=== PATIENT | female | born 1995 | race Caucasian/White ===

== ENCOUNTER 2019-11-27 15:31 | Emergency (ER) | payer BC, OTHER, SELFPAY ==
[2019-11-27 15:52] VITALS: BP 126/82; PULSE 108; RESP 16; TEMP 36.8; O2SAT 97
--- NOTE | 2019-11-27 16:26 | ED.GENADULT ---
HPI - General Adult General Chief complaint: Skin/Abscess/Foreign Body Stated complaint: oral thrush Time Seen by Provider: 11/27/19 16:27 Source: patient and RN notes reviewed Mode of arrival: ambulatory Limitations: no limitations History of Present Illness HPI narrative: 24-year-old female presents with concern for thrush and also flu symptoms. Reports her boyfriend uses an inhaler and often gets thrush and she thinks she got thrush from him. Reports a white coating on her tongue with a burning-like feeling. She has been treating it with salt water. Reports some improvement with salt water but not resolution. She also reports since Friday she has had fever, body aches, chills, sweats, coughing. MD complaint: Thrush, flulike symptoms Related Data Home Medications Medication Instructions Recorded Confirmed Bcp 11/27/19 Allergies Allergy/AdvReac Type Severity Reaction Status Date / Time No Known Allergies Allergy Verified 11/27/19 16:19 Review of Systems Review of Systems: Narrative: CONSTITUTIONAL: Reports malaise, chills, sweats, fever. EYES: Denies visual changes, redness, or discharge. ENT: Reports rhinorrhea, white coating on her tongue. Denies congestion, sinus pain, otalgia and sore throat. CARDIOVASCULAR: Denies chest pain, palpitations, or edema. RESPIRATORY: Reports cough. Denies dyspnea. GASTROINTESTINAL: Denies abdominal pain, nausea, vomiting, diarrhea SKIN: Denies rash or itching. MUSCULOSKELETAL: Reports myalgia. NEUROLOGIC: Reports headache. All systems reviewed & are unremarkable except as noted in HPI and below PMFSH Comments At time of signature, agree with nursing past medical, surgical, social and family history. There is no relevant family history pertinent to the presenting complaint Exam Narrative: Exam Narrative: GENERAL: Well-appearing, well-nourished, and in no acute distress. HEAD: Normocephalic EYES: PERRLA, conjunctivae clear ENT: Nares clear, turbinates erythematous, clear discharge. Mucous membranes moist. TM pearly beaver with sharp light reflex bilaterally; no tragal tenderness. Oropharynx not erythematous without lesions; thin white coating on tongue consistent with oral candidiasis. Tonsils not enlarged and without exudate, no drooling, no hoarseness, no trismus. NECK: Supple. No lymphadenopathy CHEST: Clear to auscultation, breath sounds equal. No wheezing, rhonchi, rales, or stridor. No respiratory distress, speaks in full sentences. HEART: Regular rate and rhythm. No murmur heard. Normal peripheral pulses. SKIN: Warm, dry, no rash. NEURO: Alert and oriented x3. PSYCH: Normal mood and affect Course Course Emergency Course: Patient is aware of diagnosis, understands and agrees to treatment plan. Anticipatory guidance given. Patient agrees to follow-up as directed and is aware of reasons to seek care at the emergency department. Portions of this record may have been created with voice recognition software Vital Signs Vital signs: Vital Signs Temperature 98.2 F 11/27/19 15:52 Pulse Rate 108 H 11/27/19 15:52 Respiratory Rate 16 11/27/19 15:52 Blood Pressure 126/82 11/27/19 15:52 Pulse Oximetry 97 11/27/19 15:52 Temperature 98.2 F 11/27/19 15:52 Pulse Rate 108 H 11/27/19 15:52 Respiratory Rate 16 11/27/19 15:52 Blood Pressure 126/82 11/27/19 15:52 Pulse Oximetry 97 11/27/19 15:52 Reviewed. Medical Decision Making MDM Narrative Medical decision making narrative: Differential diagnosis considered: Strep pharyngitis, allergic rhinitis, upper respiratory tract infection, sinusitis, rhinosinusitis, nasopharyngitis. viral pharyngitis, otitis media, otitis externa, pneumonia, bronchitis, viral cough syndrome, viral syndrome, and influenza. Exam findings show no acute concerns or changes; patient is non-toxic appearing and is in no distress. Patient is appropriate for outpatient treatment and follow-up. Vital Signs Vital Signs: Vital Signs
== END 2019-11-27 16:45 | disposition home or self-care (01) ==
PROVIDERS: Emergency Provider Nurse Practitioner
DX: J10.1 Influenza due to other identified influenza virus with other respiratory manifestations (principal)
CPT/HCPCS: 87804; 99203; G0463

== ENCOUNTER 2020-10-09 09:37 | Emergency (ER) | payer OTHER, BC, SELFPAY ==
--- NOTE | 2020-10-09 09:45 | ED.GENADULT ---
HPI - General Adult General Chief complaint: Upper Respiratory Infection Stated complaint: adams/n/v Time Seen by Provider: 10/09/20 09:46 Source: patient Mode of arrival: ambulatory Limitations: no limitations History of Present Illness HPI narrative: 25-year-old female patient presents to the [facility] with complaints of a headache with nausea and vomiting. Patient states that her symptoms started yesterday and states that she called off work for it. Patient states that did subside yesterday. Patient states it came back on this morning and she has taken some ibuprofen for the headache which has not helped. Patient rates her headache right now about 7 out of 10 but states it has improved since when she first woke up this morning. Patient states she had one episode of vomiting this morning but states she has been able to eat cereal and keep that down. Denies any fevers, body aches or chills that she is aware of. Patient states she has had a little bit of nasal congestion as well as a slight sore throat. Denies any ear pain. Denies chest pain or shortness of breath. Patient denies any history of migraines. Denies any or breast-feeding at this time. Related Data Home Medications Medication Instructions Recorded Confirmed ferrous gluconate mg 10/09/20 fiber 10/09/20 lactobacillus combination no.8 10/09/20 [Adult Probiotic] norgestimate-ethinyl estradiol tablet 10/09/20 [Sprintec (28)] riboflavin (vitamin B2) [Vitamin mg 10/09/20 B-2] zinc tablet PO 10/09/20 Allergies Allergy/AdvReac Type Severity Reaction Status Date / Time No Known Allergies Allergy Verified 11/27/19 16:19 Review of Systems Review of Systems: Narrative: CONSTITUTIONAL: Denies fever, chills, or sweats. EYES: Denies visual changes, redness, or discharge. ENT: Denies rhinorrhea, congestion, sore throat, or otalgia. CARDIOVASCULAR: Denies chest pain, palpitations, or edema. RESPIRATORY: Denies cough or dyspnea. GASTROINTESTINAL: Denies abdominal pain, nausea, vomiting, or diarrhea. GENITOURINARY: Denies dysuria or hematuria. SKIN: Denies rash or itching. MUSCULOSKELETAL: Denies back pain, joint pain, or myalgia. NEUROLOGIC: Positive headache, denies numbness, or weakness. PSYCHIATRIC: Denies anxiety or depression. PMFSH Comments At the time of my signature I agree with nursing past medical history, surgical, social, and family history. There is no relevant family history pertinent to the presenting complaint. Exam Narrative: Exam Narrative: GENERAL: Well-appearing, well-nourished, and in no acute distress. HEAD: Normocephalic, atraumatic. No trigger point for headache. No palpable scalp tenderness or obvious deformity noted. No surface trauma noted. EYES: PERRLA and EOMI. ENT: Nares clear, no rhinorrhea or epistaxis. Mucous membranes moist. Bilateral TMs with no erythema or foreign bodies to the canal. Posterior pharynx no erythema, tonsillectomy, exudates or lesions present. NECK: Supple. No lymphadenopathy CHEST: Clear to auscultation. No respiratory distress. Patient able talk in clear complete sentences. HEART: Regular rate and rhythm. No murmur heard. Normal peripheral pulses. ABDOMEN: Soft, nontender, nondistended, normal active bowel sounds. EXTREMITIES: Normal range of motion. No edema. SKIN: Warm, dry, no rash. NEURO: Alert and oriented x4, GCS 15. Cranial nerves II through XII grossly intact. No focal neurological deficits. Normal muscle strength and tone. Normal deep tendon reflexes. Negative Babinski, normal finger to nose coordination he had normal heel to aldrich glide. Speech is clear. Normal gait. Negative Romberg and no pronator drift Course Reevaluation(s) Reevaluation #1: Reevaluated patient after her strep test had come back. Discussed with her that her strep test is negative however we will send it off to the lab for further testing if it does come back positive in the next day or 2 [address] call and place her
[2020-10-09 09:49] VITALS: BP 141/59; PULSE 99; RESP 16; TEMP 36.9; O2SAT 100
== END 2020-10-09 10:26 | disposition home or self-care (01) ==
PROVIDERS: Emergency Provider Nurse Practitioner Family
DX: Z20.822 Contact with and (suspected) exposure to COVID-19 (principal); R51.9 Headache, unspecified; R11.2 Nausea with vomiting, unspecified
CPT/HCPCS: 87081; 87880; 99213; G0463

== ENCOUNTER 2020-10-10 06:55 | Outpatient (NON) | payer OTHER, BC, SELFPAY ==
[2020-10-10 19:42] LABS: SARS-CoV-2 RNA PCR Negative
== END 2020-10-10 06:56 ==
PROVIDERS: Visit Provider Nurse Practitioner Family
DX: R11.2 Nausea with vomiting, unspecified (principal); Z20.822 Contact with and (suspected) exposure to COVID-19
CPT/HCPCS: C9803; U0003

== ENCOUNTER 2021-08-07 11:44 | Emergency (ER) | payer OTHER, BC, SELFPAY ==
[2021-08-07 11:56] VITALS: BP 142/90; PULSE 101; RESP 16; TEMP 37.3; O2SAT 98
--- NOTE | 2021-08-07 12:38 | ED.URI ---
HPI - URI/Sore Throat General Chief Complaint: Upper Respiratory Infection Stated Complaint: Sore Throat Source: patient, family and RN notes reviewed Mode of arrival: ambulatory Limitations: no limitations History of Present Illness HPI Narrative: Italia is a 26-year-old female patient who ambulated into the [facility] accompanied by her brother. Patient states she had a sore throat, achiness, fatigue since August 05. Patient states she has been using salt water gargles for treatment. Patient states that she was seen at [facility] yesterday her rapid strep was negative and she was given 1 dose of steroids. Patient states that the steroid did help the pain. MD elicited complaint: sore throat Related Data Home Medications Medication Instructions Recorded Confirmed ferrous gluconate mg 10/09/20 fiber 10/09/20 lactobacillus combination no.8 10/09/20 [Adult Probiotic] norgestimate-ethinyl estradiol tablet 10/09/20 [Sprintec (28)] riboflavin (vitamin B2) [Vitamin mg 10/09/20 B-2] zinc tablet PO 10/09/20 Allergies Allergy/AdvReac Type Severity Reaction Status Date / Time No Known Allergies Allergy Verified 11/27/19 16:19 Review of Systems Review of Systems: CONSTITUTIONAL: + body aches, fever, chills, or sweats. EYES: Denies visual changes, redness, or discharge. ENT: Denies rhinorrhea, congestion, +sore throat, CARDIOVASCULAR: Denies chest pain, palpitations, or edema. RESPIRATORY: Denies cough or dyspnea. GASTROINTESTINAL: Denies abdominal pain, nausea, vomiting, or diarrhea. GENITOURINARY: Denies dysuria or hematuria. SKIN: Denies rash, itching, or wounds. MUSCULOSKELETAL: Denies back pain, joint pain, or myalgia. NEUROLOGIC: Denies headache, numbness, tingling, or weakness. PSYCH: Denies depression or anxiety. All systems reviewed & are unremarkable except as noted in HPI and below PMFSH Comments At time of signature, I have reviewed and agree with nursing past medical, surgical, social and family history unless otherwise noted. Please see nursing chart for further information. There is no relevant family history pertinent to the presenting complaint Exam Narrative: GENERAL: Well-appearing, well-nourished, and in no acute distress. HEAD: Normocephalic, atraumatic. EYES: EOMI. No redness or drainage. Conjunctivae normal. ENT: Mucous membranes pink and moist. Nares clear. No rhinorrhea. TMs normal bilaterally. Posterior pharynx is erythemic no exudate noted. Uvula midline. NECK: Normal AROM. Supple. Left anterior lymphadenopathy. CHEST: No respiratory distress. Clear to auscultation. MUSCULOSKELETAL: No bony tenderness. EXTREMITIES: Normal range of motion. No edema. SKIN: Warm, dry, no rash. Capillary refill normal. Normal skin turgor. NEURO: No focal deficits. Alert and oriented x3. Gait steady. PSYCH: Normal affect. No signs of depression or anxiety. Course Vital Signs Vital signs: Vital Signs Temperature 37.3 C 08/07/21 11:56 Pulse Rate 101 H 08/07/21 11:56 Respiratory Rate 16 08/07/21 11:56 Blood Pressure 142/90 H 08/07/21 11:56 Pulse Oximetry 98 08/07/21 11:56 Temperature 37.3 C 08/07/21 11:56 Pulse Rate 101 H 08/07/21 11:56 Respiratory Rate 16 08/07/21 11:56 Blood Pressure 142/90 H 08/07/21 11:56 Pulse Oximetry 98 08/07/21 11:56 Reviewed. Pt has been instructed to follow up with her PCP regarding her elevated blood pressure today. MDM - URI/Sore Throat MDM Narrative Medical decision making narrative: Patient's rapid strep was positive. Patient's posterior pharynx is erythemic without exudate. Patient was instructed to follow-up with her primary care physician in 3 to 5 days for no improvement or continued symptoms. Go to the emergency department for severe shortness of breath or inability to swallow saliva. Differential Diagnosis Differential diagnosis: Likely upper respiratory infection, croup, otitis media and ph
== END 2021-08-07 12:46 | disposition home or self-care (01) ==
LOC: EXPBETH 11:52
PROVIDERS: Emergency Provider Nurse Practitioner Family
DX: J02.0 Streptococcal pharyngitis (principal)
CPT/HCPCS: 87880; 99213; G0463

== ENCOUNTER 2022-04-28 13:43 | Emergency (ER) | payer OTHER, SELFPAY ==
[2022-04-28 13:50] VITALS: BP 112/72; PULSE 93; RESP 20; TEMP 36.9; O2SAT 100
--- NOTE | 2022-04-28 15:10 | ED.GENADULT ---
HPI - General Adult General Chief complaint: Upper Respiratory Infection Stated complaint: Runny nose, sore throat Source: patient Mode of arrival: ambulatory Limitations: no limitations History of Present Illness HPI narrative: Patient presents for evaluation of sore throat, runny nose, and productive cough for the last 2 days. No fever, chills, nausea, vomiting, diarrhea, shortness of breath, otalgia. Her father was sick recently. She states she thinks he had a sinus infection. She has used throat lozenges without much improvement in her symptoms. She does not smoke. No personal hx of COVID. She has received her COVID vaccination. No additional complaints or concerns. Related Data Allergies Allergy/AdvReac Type Severity Reaction Status Date / Time No Known Allergies Allergy Verified 04/28/22 14:09 Review of Systems Review of Systems: CONSTITUTIONAL: Denies fever, chills, or sweats. EYES: Denies visual changes, redness, or discharge. ENT: Reports sore throat and rhinorrhea. CARDIOVASCULAR: Denies chest pain, palpitations, or edema. RESPIRATORY: Reports productive cough. Denies dyspnea. GASTROINTESTINAL: Denies abdominal pain, nausea, vomiting, or diarrhea. GENITOURINARY: Denies dysuria or hematuria. SKIN: Denies rash or itching. MUSCULOSKELETAL: Denies back pain, joint pain, or myalgia. NEUROLOGIC: Denies headache, numbness, dizziness, or weakness. PSYCHIATRIC: Denies anxiety or depression. PMFSH Past Medical History Medical History (Updated 04/28/22 @ 15:16 by Karel Orozco, [facility], ) No pertinent past medical history Surgical History Surgical History (Updated 04/28/22 @ 15:12 by Karel Orozco, [facility], ) No pertinent past surgical history Family History Family History (Updated 04/28/22 @ 15:14 by Karel Orozco, [facility], ) Father Family history non-contributory Social History Social History (Updated 04/28/22 @ 15:14 by Karel Orozco, [facility], ) Smoking status: Never smoker Alcohol intake: never Substance use: never Living arrangements: with family Gender identity (if verbalized by the patient): Female Spiritual care concerns: No Exam Narrative: GENERAL: Well-appearing, well-nourished, and in no acute distress. HEAD: Normocephalic, atraumatic. EYES: PERRLA and EOMI. ENT: Nares clear, no rhinorrhea or epistaxis. Mucous membranes moist. Posterior pharyngeal erythema without exudate. Uvula is midline bilateral TMs pearly beaver nonbulging NECK: Supple. No adenopathy or masses. No carotid bruits or JVD CHEST: Clear to auscultation. No respiratory distress. No wheezes rales or rhonchi HEART: Regular rate and rhythm. No murmur heard. Normal peripheral pulses. ABDOMEN: Soft, nontender, nondistended, normal active bowel sounds. EXTREMITIES: Normal range of motion. No edema. SKIN: Warm, dry, no rash. NEURO: No focal deficits. Alert and oriented x3. PSYCH: Normal mood and affect. Course Course Emergency Course: This is a 26-year-old female who present with complaints of sore throat, rhinorrhea, and cough. Rapid strep negative. COVID positive. Discussed risks versus benefits of Paxlovid. Pt would like to be treated. Script sent to pharmacy. Increase hydration. Pt instructed to quarantine in accordance with CDC recommendations. She should follow up outpatient for further evaluation and treatment and go to ER for SOB or worsening symptoms. Pt in agreement with plan of care. Level of Care: Express Care Visit Vital Signs Vital signs: Vital Signs Temperature 36.9 C 04/28/22 13:50 Pulse Rate 93 04/28/22 13:50 Respiratory Rate 04/28/22 13:50 Blood Pressure 112/72 04/28/22 13:50 Pulse Oximetry 100 04/28/22 13:50 Oxygen Delivery Room Air 04/28/22 13:50 Temperature 36.9 C 04/28/22 13:50 Pulse Rate 93 04/28/22 13:50 Respiratory Rate 20 04/28/22 13:50 Blood Pressure 112/72 04/28/22 13:50 Pulse Oximetry 100 04/28/22 13:50 Oxygen Deliver
== END 2022-04-28 15:20 | disposition home or self-care (01) ==
PROVIDERS: Emergency Provider Nurse Practitioner
DX: U07.1 COVID-19 (principal)
CPT/HCPCS: 87081; 87426; 87880; 99213; C9803; G0463

== ENCOUNTER 2022-07-25 11:36 | Emergency (ER) | payer OTHER, SELFPAY ==
[2022-07-25 11:42] VITALS: BP 130/72; PULSE 116; RESP 14; TEMP 37.1; O2SAT 98
--- NOTE | 2022-07-25 11:46 | ED.URI ---
HPI - URI/Sore Throat General Chief Complaint: Upper Respiratory Infection Stated Complaint: Body Aches/Chills/Headache Time Seen by Provider: 07/25/22 11:46 Source: patient Mode of arrival: ambulatory Limitations: no limitations History of Present Illness HPI Narrative: Ms. Fritz is a 27-year-old female patient presenting to the clinic today with complaints of body aches, chills, and headache x4 days. She reports she is scheduled to go to work tomorrow and is wanting to make sure that she is going to be safe going to work. She denies any known fever. She denies any known exposure to anybody with COVID, flu, or strep. MD elicited complaint: other (Chills, headaches, body aches) Related Data Allergies Allergy/AdvReac Type Severity Reaction Status Date / Time No Known Allergies Allergy Verified 07/25/22 11:43 Review of Systems Review of Systems: Pertinent positives per HPI. Patient denies any fever, rash, visual changes, dizziness, cough, shortness of breath, chest pain, palpitations, nausea, vomiting, diarrhea, constipation, abdominal pain, or any urinary issues. PMFSH Past Medical History Medical History No pertinent past medical history Surgical History Surgical History No pertinent past surgical history Family History Family History Father Family history non-contributory Social History Social History Smoking status: Never smoker Alcohol intake: never Substance use: never Gender identity (if verbalized by the patient): Female Spiritual care concerns: No Comments At the time of my signature, I reviewed and agree with the nursing past medical, surgical, social, and family history. There is no relevant family history pertinent to the patient complaint. Exam Narrative: General: Well-developed, well nourished, in no apparent distress Head: Normocephalic, atraumatic Eyes: Pupils equally round and reactive to light bilaterally, EOM intact, sclera and conjunctive clear, no discharge, lids normal Ears: TMs intact and clear, ear canals clear, no drainage, grossly hearing normal. Nose: Nares patent, clear nasal discharge, no inflammation, no sinus tenderness. Mouth: Oral pharynx without lesions or masses, good dentition, MMM. Oropharynx red and erythemic Neck: Supple, trachea midline, enlargement of anterior cervical nodes, no thyroid masses or goiter palpable. Cardio: Regular rate and rhythm, s1 and s2 normal, no murmur appreciated. Resp: Clear to auscultation bilaterally, no rhonchi, rales, wheezing or rubs Course Course Emergency Course: Portions of this record may have been created with voice recognition software. Level of Care: Express Care Visit Vital Signs Vital signs: Vital signs reviewed MDM - URI/Sore Throat MDM Narrative Medical decision making narrative: At the time of visit patient is resting comfortably on the exam table. Influenza and strep screen was obtained in the clinic today. Influenza testing was negative however strep testing was positive. Prescription for amoxicillin was sent to the pharmacy and supportive measures were discussed with the patient she voiced understanding of discharge instructions and agrees to treatment plan. Differential Diagnosis Differential diagnosis: Likely upper respiratory infection, otitis media, sinusitis, viral infection, bronchitis, influenza, pharyngitis and other (COVID) Discharge Plan Discharge Clinical Impression: Strep pharyngitis Patient Disposition: Home, Self-Care Condition: Stable Instructions: Antibiotic Form, Strep Throat (ED) Additional Instructions: Influenza testing was negative. Strep screen was positive. Take prescription medications only as prescribed-amoxici
== END 2022-07-25 12:10 | disposition home or self-care (01) ==
PROVIDERS: Emergency Provider Nurse Practitioner Family; PCP Emergency Medicine
DX: J02.0 Streptococcal pharyngitis (principal); K90.0 Celiac disease; Z86.16 Personal history of COVID-19
CPT/HCPCS: 87804; 87880; 99213; G0463

== ENCOUNTER 2022-08-28 12:33 | Emergency (ER) | payer OTHER, SELFPAY | END 2022-08-28 14:12 | disposition left against medical advice (07) | PROVIDERS: Emergency Provider Registered Nurse; PCP Emergency Medicine | DX: Z53.21 Procedure and treatment not carried out due to patient leaving prior to being seen by health care provider (principal) | CPT/HCPCS: 99199 ==

== ENCOUNTER 2022-08-30 14:16 | Emergency (ER) | payer OTHER, SELFPAY ==
[2022-08-30 14:40] VITALS: BP 138/84; PULSE 75; RESP 20; TEMP 36.7; O2SAT 99
--- NOTE | 2022-08-30 14:41 | ED.FEMALEGU ---
HPI - Female Genitourinary General Chief complaint: Urogenital-Female Stated complaint: Urinary Problem Time Seen by Provider: 08/30/22 14:55 Source: patient Mode of arrival: ambulatory Limitations: no limitations History of Present Illness HPI Narrative: Italia is a 27-year-old female patient presenting to the clinic today with complaints of possible urinary tract infection. She reports she started having malodorous urine, urinary frequency and urge to void since yesterday. Is currently on her menses she denies any other vaginal discharge or odors .she denies any new sexual partners Related Data Home Medications Medication Instructions Recorded Confirmed norgestimate 0.25 mg-ethinyl 1 tablet PO DAILY 08/30/22 08/30/22 estradiol 35 mcg tablet (Sprintec (28)) Allergies Allergy/AdvReac Type Severity Reaction Status Date / Time No Known Allergies Allergy Verified 08/30/22 14:56 Review of Systems Review of Systems: Pertinent positives per HPI. Patient denies any fever, chills, rash, headache, visual changes, dizziness, cough, runny nose, sore throat, shortness of breath, chest pain, palpitations, nausea, vomiting, diarrhea, constipation, abdominal pain, or any urinary issues. PMFSH Past Medical History Medical History No pertinent past medical history Surgical History Surgical History No pertinent past surgical history Family History Family History Father Family history non-contributory Social History Social History Smoking status: Never smoker Alcohol intake: never Substance use: never Gender identity (if verbalized by the patient): Female Spiritual care concerns: No Comments At the time of my signature, I reviewed and agree with the nursing past medical, surgical, social, and family history. There is no relevant family history pertinent to the patient complaint. Exam Narrative: General: Well-developed, well nourished, in no apparent distress. Head: Normocephalic, atraumatic. Cardio: Regular rate and rhythm, s1 and s2 normal, no murmur appreciated. Resp: Clear to auscultation bilaterally, no rhonchi, rales, wheezing or rubs. Abdomen: Soft, pliable, bowel sounds present in all quadrants, non-tender to palpation, no organomegly, no CVAT tenderness. Course Course Emergency Course: Portions of this record may have been created with voice recognition software. Level of Care: Express Care Visit Vital Signs Vital signs: Vital Signs Temperature 36.7 C 08/30/22 14:40 Pulse Rate 75 08/30/22 14:40 Respiratory Rate 20 08/30/22 14:40 Blood Pressure 138/84 08/30/22 14:40 Pulse Oximetry 99 08/30/22 14:40 Oxygen Delivery Room Air 08/30/22 14:40 Temperature 36.7 C 08/30/22 14:40 Pulse Rate 75 08/30/22 14:40 Respiratory Rate 20 08/30/22 14:40 Blood Pressure 138/84 08/30/22 14:40 Pulse Oximetry 99 08/30/22 14:40 Oxygen Delivery Room Air 08/30/22 14:40 Vital signs reviewed MDM - Female Genitourinary MDM Narrative Medical decision making narrative: at the time of visit patient is resting comfortably on the exam table. UA shows trace of leukocytes and blood. I suspect the blood is coming from her menses. I will go ahead and treat her with Macrobid as she is has urinary symptoms. Supportive measures were discussed with the patient and she voiced understanding of discharge instructions. Culture was sent to the Lab. Differential Diagnosis Differential diagnosis: Likely urinary tract infection, bacterial vaginosis and cystitis Lab Data Labs: Urine Glucose Negative Reference Range: Negative Urine Bilirubin Negat
== END 2022-08-30 15:10 | disposition home or self-care (01) ==
PROVIDERS: Emergency Provider Nurse Practitioner Family; PCP Emergency Medicine
DX: N39.0 Urinary tract infection, site not specified (principal)
CPT/HCPCS: 81003; 87086; 87088; 99213; G0463

== ENCOUNTER 2022-12-30 18:31 | Emergency (ER) | payer OTHER, SELFPAY ==
--- NOTE | ~2022-12-30 | XR_ITS ---
EXAMINATION: XR shoulder LT min 2V INDICATION: Left shoulder pain TECHNIQUE: Four views of the left shoulder are submitted. COMPARISON: None FINDINGS: Normal alignment. No fracture. Glenohumeral and acromioclavicular joint spaces are normal. Soft tissues are unremarkable. IMPRESSION: 1. No acute osseous abnormality. Reviewed, dictated and finalized at location F.
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
[2022-12-30 18:38] VITALS: BP 139/62; PULSE 104; RESP 20; TEMP 36.7; O2SAT 99
== END 2022-12-30 19:23 | disposition home or self-care (01) ==
PROVIDERS: Emergency Provider Nurse Practitioner Family; PCP Emergency Medicine
DX: S41.002A Unspecified open wound of left shoulder, initial encounter (principal); S40.012A Contusion of left shoulder, initial encounter; W18.30XA Fall on same level, unspecified, initial encounter
CPT/HCPCS: 73030; 99213; G0463

== ENCOUNTER 2023-01-14 19:21 | Emergency (ER) | payer OTHER, SELFPAY ==
--- NOTE | 2023-01-14 19:26 | ED.GENADULT ---
HPI - General Adult General Chief complaint: Urogenital-Female Stated complaint: poss uti Source: patient and RN notes reviewed History of Present Illness HPI narrative: 27-year-old female presents to urgent care with complaints of urinary urgency and frequency. Patient states this been going on for last couple days. Patient reports lower back pain but contributes this to being on her period currently. Patient denies any fevers, chills, vomiting, abdominal pain, chest pain, or shortness of breath. Some parts of this dictation were generated by voice recognition software and may contain typographical and/or grammatical inaccuracies. Related Data Home Medications Medication Instructions Recorded Confirmed norgestimate 0.25 mg-ethinyl 1 tablet PO DAILY 08/30/22 01/14/23 estradiol 35 mcg tablet (Sprintec (28)) Allergies Allergy/AdvReac Type Severity Reaction Status Date / Time No Known Allergies Allergy Verified 08/30/22 14:56 Review of Systems Review of Systems: Pertinent positives and pertinent negatives per HPI. [facility] Past Medical History Medical History No pertinent past medical history Surgical History Surgical History No pertinent past surgical history Family History Family History Father Family history non-contributory Social History Social History Smoking status: Never smoker Alcohol intake: never Substance use: never Living arrangements: with family Gender identity (if verbalized by the patient): Female Spiritual care concerns: No Comments At the time of my signature, I reviewed and agree with the nursing past medical, surgical, social, and family history. There is no relevant family history pertinent to the patient complaint. Exam Narrative: GENERAL: This is a well-nourished, well-developed patient, in no apparent distress. HEAD: normocephalic, atraumatic. EYES: Sclera clear/white. Vision is grossly intact. EARS: External ears normal, auditory canals clear and without drainage. Hearing grossly intact. NOSE: External nose normal with no obvious nasal discharge, nares without redness, no rhinorrhea. THROAT: Mucous membranes moist, posterior pharynx clear. NECK: Neck supple, non-tender without lymphadenopathy, masses or thyromegaly. CARDIOVASCULAR: Regular rate RESPIRATORY: No respiratory distress SKIN: warm, intact with no suspicious lesions or rash, good texture and turgor. NEURO: awake, alert, and oriented to person, place and time. There were no obvious focal neurologic abnormalities. Course Course Level of Care: Express Care Visit Vital Signs Vital signs: Vital Signs Temperature 97.6 F 01/14/23 19:28 Pulse Rate 86 01/14/23 19:28 Respiratory Rate 16 01/14/23 19:28 Blood Pressure 128/63 01/14/23 19:28 Pulse Oximetry 100 01/14/23 19:28 Oxygen Delivery Room Air 01/14/23 19:28 Temperature 97.6 F 01/14/23 19:28 Pulse Rate 86 01/14/23 19:28 Respiratory Rate 16 01/14/23 19:28 Blood Pressure 128/63 01/14/23 19:28 Pulse Oximetry 100 01/14/23 19:28 Oxygen Delivery Room Air 01/14/23 19:28 Reviewed Medical Decision Making MDM Narrative Medical decision making narrative: We will send a urine culture off to the lab; if the culture identifies an organism that the prescribed antibiotic will not treat, you will receive a phone call from an urgent care staff member and an appropriate antibiotic will be prescribed. -Your symptoms should begin to improve within a day of starting antibiotics. But you should finish all the antibiotic pills you get. Otherwise your infection might come back. -Also recommend: drink more fluid. It might help flush out germs, and it does no harm -Tylenol/ibuprofen as need
[2023-01-14 19:28] VITALS: BP 128/63; PULSE 86; RESP 16; TEMP 36.4; O2SAT 100
== END 2023-01-14 19:45 | disposition home or self-care (01) ==
PROVIDERS: Emergency Provider Nurse Practitioner Family; PCP Emergency Medicine
DX: N39.0 Urinary tract infection, site not specified (principal)
CPT/HCPCS: 81003; 87086; 87088; 87147; 99213; G0463

== ENCOUNTER 2023-06-23 13:42 | Emergency (ER) | payer OTHER, SELFPAY ==
[2023-06-23 13:48] VITALS: BP 141/79; PULSE 81; RESP 16; TEMP 36.7; O2SAT 100
--- NOTE | 2023-06-23 14:18 | ED.URI ---
HPI - URI/Sore Throat General Chief Complaint: Upper Respiratory Infection Stated Complaint: Cough/Headache/Nausea Time Seen by Provider: 06/23/23 14:15 Source: patient, RN notes reviewed and old records reviewed Mode of arrival: ambulatory Limitations: no limitations History of Present Illness HPI Narrative: 28 year old female [facility] with complaints of 1 week duration of cough,and awoke this morning with headache, and some nausea. Patient reports that she took some Excedrin without relief. Patient reports no known fevers, chills or body aches denies any sore throat.Patient denies any shortness of breath, respirations nonlabored and no tachypnea noted.SAO2 100% on room air. MD elicited complaint: cough and other (headache, nausea) Onset (ago): week(s) (cough 1 week, nausea and headache today) Able to tolerate fluids by mouth: Yes Treatments prior to arrival: other (excedrin) Related Data Home Medications Medication Instructions Recorded Confirmed norgestimate 0.25 mg-ethinyl 1 tablet PO DAILY 08/30/22 01/14/23 estradiol 35 mcg tablet (Sprintec (28)) norgestimate 0.25 mg-ethinyl tablet 06/23/23 estradiol 35 mcg tablet (Sprintec (28)) Allergies Allergy/AdvReac Type Severity Reaction Status Date / Time No Known Allergies Allergy Verified 08/30/22 14:56 Review of Systems Review of Systems: CONSTITUTIONAL: Denies malaise, chills, sweats, or fever. EYES: Denies visual changes, redness, or discharge. ENT: Reports rhinorrhea, congestion, sinus pain, no otalgia and no sore throat. CARDIOVASCULAR: Denies chest pain, palpitations, or edema. RESPIRATORY: Reports cough.? Denies dyspnea. GASTROINTESTINAL: Denies abdominal pain, reports some nausea, denies any vomiting, diarrhea SKIN: Denies rash or itching. MUSCULOSKELETAL: Denies myalgia. NEUROLOGIC: Reports headache. All systems reviewed & are unremarkable except as noted in HPI and below PMFSH Past Medical History Medical History No pertinent past medical history Surgical History Surgical History No pertinent past surgical history Family History Family History Father Family history non-contributory Social History Social History Smoking status: Never smoker Alcohol intake: never Substance use: never Living arrangements: with family Gender identity (if verbalized by the patient): Female Spiritual care concerns: No Comments At time of signature, agree with nursing past medical, surgical, social and family history. There is no relevant family history pertinent to the presenting complaint Exam Narrative: GENERAL: Well-appearing, well-nourished, and in no acute distress. HEAD: Normocephalic EYES: PERRLA, conjunctivae clear ENT: Nares clear, turbinates edematous and erythematous, clear discharge. Mucous membranes moist. TM pearly beaver with dull light reflex bilaterally; no tragal tenderness. Oropharynx erythematous without lesions. Tonsils not enlarged and without exudate, no drooling, no hoarseness, no trismus, uvula midline.some post nasal drainagee NECK: Supple. No lymphadenopathy CHEST: Clear to auscultation, breath sounds equal. No wheezing, rhonchi, rales, or stridor. No respiratory distress, speaks in full sentences.cough, SAO2 100% on room air HEART: Regular rate and rhythm. No murmur heard. SKIN: Warm, dry, no rash. NEURO: Alert and oriented x3. PSYCH: Normal mood and affect Course Course Emergency Course: Patient is aware of diagnosis, understands and agrees to treatment plan.? Anticipatory guidance given.? Patient agrees to follow-up as directed and is aware of reasons to seek care at the emergency department. Portions of this rec
== END 2023-06-23 14:34 | disposition home or self-care (01) ==
PROVIDERS: Emergency Provider Registered Nurse; PCP Emergency Medicine
DX: J06.9 Acute upper respiratory infection, unspecified (principal); R05.1 Acute cough
CPT/HCPCS: 99213; G0463

== ENCOUNTER 2023-12-11 10:57 | Emergency (ER) | payer BC, SELFPAY ==
[2023-12-11 11:10] VITALS: BP 133/69; PULSE 81; RESP 16; TEMP 36.6; O2SAT 100
--- NOTE | 2023-12-11 11:20 | ED.GENADULT ---
HPI - General Adult General Chief complaint: Urogenital-Female Stated complaint: Urinary Problem Source: patient, RN notes reviewed and old records reviewed Mode of arrival: ambulatory Limitations: no limitations History of Present Illness HPI narrative: 28-year-old female presents to [facility] with complaints dysuria, urinary frequency, constant urge to urinate and lower abdominal pain that started 1 week ago. Patient states increase fluids to try to treat herself but has not worked. Patient denies fever, nausea, vomiting, back pain Related Data Home Medications Medication Instructions Recorded Confirmed norgestimate 0.25 mg-ethinyl tablet 06/23/23 estradiol 35 mcg tablet (Sprintec (28)) Allergies Allergy/AdvReac Type Severity Reaction Status Date / Time No Known Allergies Allergy Verified 12/11/23 11:23 Review of Systems Constitutional: Constitutional: Reports no additional constitutional complaints, Denies body ache(s), Denies chills, Denies fatigue, Denies fever(s) and Denies headache(s) Eyes: Eyes: Reports no additional eye complaints and Denies blurry vision ENT: Reports system reviewed and no additional complaints, except as documented, Denies vertigo, Denies dizziness, Denies ear discharge, Denies otalgia, Denies facial pain, Denies headache(s), Denies nasal congestion, Denies nasal discharge, Denies sinus pain, Denies sinus pressure and Denies sore throat Cardiovascular: Cardiovascular: Reports no additional cardiovascular complaints, Denies chest pain, Denies chest pain at rest, Denies rapid heart rate and Denies dyspnea Respiratory: Respiratory: Reports no additional respiratory complaints, Denies chest congestion, Denies cough, Denies pain on inspiration, Denies pain with cough and Denies dyspnea Gastrointestinal: Gastrointestinal: Reports abdominal pain, Denies diarrhea, Denies nausea and Denies vomiting Genitourinary: Genitourinary: Reports as per HPI, Reports nocturia, Reports dysuria and Reports urinary urgency Integumentary/Breasts: Skin/Breast: Denies rash Neurologic: Reports system reviewed and no additional complaints, except as documented, Denies vertigo, Denies dizziness and Denies headache(s) Endocrine: Endocrine: Denies fatigue PMFSH Past Medical History Medical History No pertinent past medical history Surgical History Surgical History No pertinent past surgical history Family History Family History Father Family history non-contributory Social History Social History Smoking status: Never smoker Alcohol intake: never Substance use: never Living arrangements: with family Gender identity (if verbalized by the patient): Female Spiritual care concerns: No Comments At the time of my signature, I reviewed and agree with the nursing past medical, surgical, social, and family history. There is no relevant family history pertinent to the patient complaint. Exam Const: General: cooperative, healthy appearing, no acute distress and well nourished Nutritional Appearance: well nourished Orientation/consciousness: patient oriented x3 Limitations: no limitations HENMT: Head: normal to inspection and normocephalic Ears: external ears normal Face/Nose/Sinus: normal facial exam Face and sinus: normal facial exam Mouth: Yes Normal oral and palatal mucosa present, Yes oropharynx normal and Yes moist mucous membranes Eyes: General: appearance normal, both eyes and all related structures Sclera: sclerae normal Pupils: Equal, round and reactive pupils present Resp: Effort & Inspection: normal respiratory effort, able to speak in complete sentences, no audible wheezes, no cough, no respiratory distress and no retractions GI: GI Palp: No abdomina
== END 2023-12-11 11:31 | disposition home or self-care (01) ==
PROVIDERS: Emergency Provider Registered Nurse; PCP Emergency Medicine
DX: N30.90 Cystitis, unspecified without hematuria (principal)
CPT/HCPCS: 81003; 87086; 99213; G0463

== ENCOUNTER 2025-01-05 13:42 | Emergency (ER) | payer OTHER, SELFPAY ==
[2025-01-05 13:50] VITALS: BP 128/80; PULSE 81; RESP 16; TEMP 36.7; O2SAT 100
--- NOTE | 2025-01-05 14:30 | ED.FEMALEGU ---
HPI - Female Genitourinary General Chief complaint: Urogenital-Female Stated complaint: urinary irritation Time Seen by Provider: 01/05/25 14:30 Source: patient and RN notes reviewed Mode of arrival: ambulatory Limitations: no limitations History of Present Illness HPI Narrative: 29-year-old female presented for complaint of burning with urination, frequency and urgency. Onset 3 days. Endorses frequent UTIs and says this feels similar. She denies any concern for an STD. Denies hematuria, nausea, vomiting, abdominal pain, flank pain, constipation, diarrhea, fevers or chills. Related Data Home Medications ?Medication ?Instructions ?Recorded ?Confirmed ?Last Taken ?Type norgestimate 0.25 mg-ethinyl tablet 06/23/23 Unknown History estradiol 0.035 mg tablet (Sprintec (28)) Allergies Allergy/AdvReac Type Severity Reaction Status Date / Time No Known Allergies Allergy Verified 01/05/25 14:12 Review of Systems Review of Systems: CONSTITUTIONAL: Denies body aches, fever, chills, or sweats. CARDIOVASCULAR: Denies chest pain, palpitations, or edema. RESPIRATORY: Denies cough or dyspnea. GASTROINTESTINAL: Denies abdominal pain, nausea, vomiting, or diarrhea. GENITOURINARY: Reports dysuria, frequency, denies hematuria, flank pain SKIN: Denies rash, itching, or wounds. MUSCULOSKELETAL: Denies back pain or myalgia. [facility] Past Medical History Medical History No pertinent past medical history Surgical History Surgical History No pertinent past surgical history Family History Family History Father Family history non-contributory Social History Social History Smoking status: Never smoker Alcohol intake: never Substance use: never Living arrangements: with family Gender identity (if verbalized by the patient): Female Spiritual care concerns: No Comments At time of signature, I have reviewed and agree with nursing past medical, surgical, social and family history unless otherwise noted. Please see nursing chart for further information. There is no relevant family history pertinent to the presenting complaint Exam Narrative: GENERAL: Well-appearing ENT: Mucous membranes pink and moist. NECK: Normal AROM. Supple. CHEST: No respiratory distress. Clear to auscultation. HEART: Regular rate and rhythm. ABDOMEN: Soft, nontender, nondistended, normal active bowel sounds. No CVA tenderness SKIN: Warm, dry, no rash. NEURO: No focal deficits. Alert and oriented x3. Gait steady. PSYCH: Normal affect. Course Course Emergency Course: Patient is aware of diagnosis, understands and agrees to treatment plan. Anticipatory guidance given. Patient agrees to follow-up as directed and is aware of reasons to seek care at the emergency department. Portions of this record may have been created with voice recognition software Level of Care: Express Care Visit Vital Signs Vital signs: Vital Signs Temperature 98.1 F 01/05/25 13:50 Pulse Rate 81 01/05/25 13:50 Respiratory Rate 16 01/05/25 13:50 Blood Pressure 128/80 01/05/25 13:50 Pulse Oximetry 100 01/05/25 13:50 Oxygen Delivery Room Air 01/05/25 13:50 Temperature 98.1 F 01/05/25 13:50 Pulse Rate 81 01/05/25 13:50 Respiratory Rate 16 01/05/25 13:50 Blood Pressure 128/80 01/05/25 13:50 Pulse Oximetry 100 01/05/25 13:50 Oxygen Delivery Room Air 01/05/25 13:50 Reviewed MDM - Female Genitourinary MDM Narrative Medical decision making narrative: Discussed physical exam findings and urine dip. Advised supportive measures and signs/symptoms to go to the ER. Pt is appropriate for outpt treatment and f/u. Differential Diagnosis Differential diagnosis: Likely urinary tract infection, bacterial vaginosis, vaginitis and cystitis Discharge Plan Discharge Clinical Impression: Urinary tract infection Patient Disposition: Home, Self-Care Condition: Stable Instructions: Antibiotic Form, Urinary Tract Infection in Women (ED) Additional Instructions: Take the antibiotic as prescribed The urine will be sent of for a culture to identify what type of bacteria is causing your infection. If the culture shows that the antibiotic will not get rid of your infection, you will be notified and a new antibiotic will be called in for you. Increase water intake you will need to follow up with your PCP, call to schedule an appointment. Go to the ER for any worsening symptoms or concerns Patient Language: Citizen Of [place] Prescriptions: New nitrofurantoin monohyd/m-cryst [Macrobid] 100 mg capsule 100 mg PO Q12H 5 Days Qty: 10 0RF Rx Instructions: must administer with a meal/food No Action norgestimate-ethinyl estradiol [Sprintec (28)] 0.25-35 mg-mcg tablet Follow-up/Referrals: Chaz Guillory MD [Primary Care Provider] - Time of Disposition: 14:37
[2025-01-05 14:39] LABS: EDUAAPPEAR Clear; EDUABILI Negative (Negative); EDUABLOOD Trace (Negative); EDUACOLOR1 Yellow; EDUAGLUCOSE Negative (Negative); EDUAKETONE Trace (Negative); EDUALEUKO 1+ (Negative); EDUANITRATE Negative (Negative); EDUAPH 8.5; EDUAPROTEIN Trace (Negative); EDUASPGRAVITY 1.015
--- OUTSIDE RECORDS SUMMARY | 2025-01-05 14:58 | XMS_ITS | Clinical Summary ---
Author Organization [facility] Address [address] [place] [address] Care Team Providers Care Supervisor Finish End Name Role Phone Chaz Guillory MD Primary Care Provider Allergies No known active allergies Medications SPRINTEC, 28, 0.25-35 mg-mcg per tablet Take 1 tablet by mouth daily 0 9 Active butalbital-aspir in-caffeine (FIORINAL) 50-325-40 mg capsule Take 1 capsule by mouth every 4 (four) hours as needed for headaches 14 capsule 9 Active Additional Information Patient not taking.Reported on 06/22/2020 valACYclovir (VALTREX) 1 gram tablet 1 Active al & mag hydroxide with simethicone-diph enhydramine-lido rey (MAGIC MOUTHWASH) suspension [id number] :Acute pharyngitis, unspecified etiology Swish and swallow 10 mL every 4 (four) hours as needed (sore throat) 150 mL 1 Active Active Problems Problem Noted Date Diagnosed Date Chronic idiopathic constipation 10/26/2021 Celiac disease 01/29/2021 Dietary counseling 01/29/2021 Dysphagia 05/01/2020 Overview (05/01/2020): Added automatically from request for surgery [id number] Surgical History Surgery Date Site/Laterality Comments NO PAST SURGERIES Medical History Medical History Date Comments Celiac disease Family History Medical History Relation Name Comments Diabetes Father Hypertension Father Bipolar disorder Mother Relation Name Status Comments Father Mother Social History Tobacco Use Types Packs/Day Years Used Date Smoking Tobacco: Never Smokeless Tobacco: Never Alcohol Use Standard Drinks/Week Comments Never 0 (1 standard drink = 0.6 oz pur e alcohol) AUDIT-C Answer Date Recorded Q1: How often do you have a drink containing alc ohol? Never 05/19/2020 Average Number of Drinks Not on file 020 Frequency of Binge Drinking Not on file 05/06 Personal Safety Answer Date Recorded Have you ever been in or are you currently in a harmful physical or emotional relationship or is someone making you feel afraid or unsafe? Denies 07/12/2024 Comments No Sex and Gender Information Value Date Recorded Sex Assigned at Not on file Legal Sex Female 12:41 PM INSURANCE CONS[employer]ANT Gender Identity Female 12/20/2020 2:09 PM CDT Sexual Orientation Straight 12/20/2020 2: 09 PM CDT Obstetrics History Last Filed Vital Signs Vital Sign Reading Time Taken Comments Blood Pressure 155/88 07/12/2024 10:35 AM CDT Pulse 55 07/12/2024 10:35 AM CDT Temperature 36.8 C (98.2 F) 07/12/2024 10:35 AM CDT Respiratory Rate 18 07/12/2024 10:35 AM CDT Oxygen Saturation 98% 07/12/2024 10:35 AM CDT Inhaled Oxygen Concentration - - Weight 70.3 kg (155 lb) 07/12/2024 10:35 AM CDT Height 177.8 cm (5' 10 ) 07/12/2024 10:35 AM CDT Body Mass Index 22.24 07/12/2024 10:35 AM CDT Plan of Treatment Health Maintenance Due Date Last Done Comments Cervical Cancer Screening 1997 Depression Screening 1997 Hepatitis C Screening 1997 Varicella Vaccines (1 of 2 - 13+ 2-dose series) 2010 Hepatitis B Screening 2015 Regular Well Visit/Exam 18-64 2015 DTaP/Tdap/Td Vaccine (2 - Td or Tdap) 10/06/2021 10/06/2011 Influenza Vaccine (#1) 2024 0, 07/18/2017 HPV Vaccines Aged Out No longer eligi ble based on patient's age to complete this topic Pneumococcal vaccine <65 Aged Out No longer eligible based on patient's age to complete this topic Insurance [facility] HEALTH BENEFIT PLAN [facility] PLAN [place]LE [place]ARO [id number] [facility] HEALTH BENEFIT PLAN [place] ACCESS CHOICE [facility] Advance Directives For more information, please contact: [phone] * Full Code (Latest Code Status on File) Date Activated Date Inactivated Comments 05/19/2020 9:50 AM 05/19/2020 4:17 PM Care Teams Supervisor Finish End Relationship Specialty Start Date End Date Chaz Guillory MD [address] [place] [address] PCP - General Family Medicine 05/02/21
--- OUTSIDE RECORDS SUMMARY | 2025-01-05 14:59 | XMS_ITS | Referral Summary ---
Author Organization [facility] Address [address] [place] [address] Care Team Providers Care Sales Counselor Name Role Phone Chaz Guillory MD Primary Care Provider [phone] Allergies No known active allergies Medications SPRINTEC, [...] with simethicone-diph enhydramine-lido rey (MAGIC MOUTHWASH) suspension [id number] :Acute pharyngitis, unspecified etiology Swish and swallow 10 mL every 4 (four) hours as needed (sore throat) 150 mL 1 Active Active Problems Problem Noted Date Diagnosed Date Chronic idiopathic constipation 10/26/2021 Celiac disease 01/29/2021 Dietary counseling 01/29/2021 Dysphagia 05/01/2020 Overview (05/01/2020): Added automatically from request for surgery [id number] Social History Tobacco Use Types Packs/Day Years [...] on file Legal Sex Female 12:41 PM [employer] Gender Identity Female 12/20/2020 2:09 PM CDT Sexual Orientation Straight 12/20/2020 2: 09 PM CDT Last Filed Vital Signs Vital Sign Reading [...] 07/12/2024 10:35 AM CDT Plan of Treatment Not on file Insurance [facility] [employer] [facility] PLAN [facility] Member Subscriber Plan / Payer (Ef fective 2020-Present) Name:Danay Fritz Relation to Subscriber:Other Relationship Name:DENICEJASE Kong Date of :1973 (Home) Address: [address] [place] [address] Payer ID:[id number] Group ID:[id number] Type:[employer]IG[employer] HMO/PPO Address: [address] [place], [place] [employer] ACCESS CHOICE [facility] PLAN Advance Directives For more information, please contact: [phone] * Full Code (Latest Code Status on File) Date Activated Date Inactivated Comments 05/19/2020 9:50 AM 05/19/2020 4:17 PM Care Teams Sales Counselor Relationship Specialty Start Date End Date Chaz Guillory MD [address] [place] [address] PCP - General Family Medicine 05/02/21
--- OUTSIDE RECORDS SUMMARY | 2025-01-05 14:59 | XMS_ITS | Data Portability ---
Author Organization [facility] SERGIODacia [facility] Address [address] [place] [address] Care Team Providers Care Bioinformatics Software Engineer Name Role Phone PAULOSHANDANADERSmita Primary Care Provider Assessment No assessment recorded. Plan of Treatment Reminders Order Date Submit Date Provider Last Modified By Organization Details Last Modified Time Details Appointments None recorde d. Lab vaginal pathoge ns panel, DENISE+pro be, vaginal fluid 2022 023 [facility], [address], [place], [address], 3 16:11:08 HIV 1 + 2, meaning ful use set 2022 023 [facility], [address], [address], [place], [address], 3 16:11:10 RPR (rapid plasma reagin) , serum 2022 023 [facility], [address], [place], [address], 3 16:11:09 HBsAg (hepati tis B surface Ag), EIA, serum 2022 023 [facility], [address], [address], [place], [address], 3 16:11:09 Hepatit is C IgG Ab, qual, serum 2022 023 MIGUEL [facility], [address], [place], [address], 3 16:11:06 hsv (1+2) igg Ab, serum 2022 023 PICAYUNE [facility], [address], [place], [address], 3 16:11:07 vaginal pathoge ns panel, DENISE+pro be, vaginal fluid 2021 022 [facility], [address] [place], [place] [address]princess Her, [address], [place], [address], 11:11:59 RPR (rapid plasma reagin) , serum 2021 [facility], [address] [place], [place] [address]princess Her, [address], [place], [address], 07:13:03 HIV 1 + 2, meaning ful use set 2021 022 [facility], [address] [place], [place] [address]princess Her, [address], [place], [address], 07:13:04 HBsAg (hepati tis B surface Ag), EIA, serum 2021 [facility], [address] [place], [place] [address]princess Her, [address], [place], [address], 07:13:03 hepatit is C Ab, signal- to-cuto ff, serum or plasma 2021 022 [facility], [address] [place], [place] [address]princess Her, [address], [place], [address], 07:13:02 hsv (1+2) igg Ab, serum 2021 022 [facility], [address], [address], [place], [address], 2 07:13:02 cytolog y report, thin prep, smear or scrapin g, cervica l or vaginal 2021 022 PICAYUNE [facility], [address], [address], [place], [address], 2 16:11:14 Referral None recorde d. Procedures None recorde d. Surgeries None recorde d. Imaging None recorde d. Medication Orders valacyc lovir 1 gram tablet 2023 024 [facility], [address] [place], [address], 4 14:44:12 Sprinte c (28) 0.25 mg-0.03 5 mg tablet 2023 024 [facility], [address] [place], [address], 4 14:44:10 metroni dazole 500 mg tablet 2022 023 [facility], [address] [place], [address], 4 14:20:27 valacyc lovir 1 gram tablet 2022 023 [facility], [address] [place], [address], 3 10:36:47 Sprinte c (28) 0.25 mg-0.03 5 mg tablet 2022 023 [facility], [address] [place], [address], 3 10:36:49 Sprinte c (28) 0.25 mg-0.03 5 mg tablet [facility] [address] [place] [address], [address], 2 10:15:54 Sprinte c (28) 0.25 mg-0.03 5 mg tablet 2020 021 [facility], [address] [place], [address], 1 15:23:04 Patient TargetsNo targets recorded. Patient Instructions Encounter Date Encounter Id Patient Instructions Last Modified By Organization Details Last Modified Time 04/16/2023 [id number] [facility] Not available 04/16/2023 11:16:27 04/22/2024 [id number] learning about mood disorders [facility] Not available 04/22/2024 14:43:59 Reason for Referral None Reported. Results Created Date Observation Date Name Description Value Unit Range Abnormal Flag Note LastModifiedBy Organization Detail LastModifiedTime 07/17/2007/19/2022 IGP,C TNGTV ,APT HPV,R FX16/ 18,45 HPV aptima Negati ve negati ve This nucle ic acid ampli ficat ion test detec ts fourt een high- risk HPV types (16,1 8,31, 33,35 ,39,4 5,51, 52,56 ,58,5 9,66, 68) witho ut diffe renti ation . Not Available [facility] ([facility]) [address] [place], [address], 07/22/2022 16:11:13 07/17/20 22 07/19/2022 IGP,C TNGTV ,APT HPV,R FX16/ 18,45 chlamydia, nuc. acid amp Negati ve negati ve Not Available [facility] ([facility]) [address] [facility], [place], [address], 07/22/2022 16:11:13 07/17/2007/19/2022 IGP,C TNGTV ,APT HPV,R FX16/ 18,45 gonococcus, nuc. acid amp Negati ve negati ve Not Available [facility] ([facility]) [address] [facility], [place], [address], 07/22/2022 16:11:13 07/17/2007/19/2022 IGP,C TNGTV ,APT HPV,R FX16/ 18,45 trich vag by DENISE Negati ve negati ve Not Available [facility] ([facility]) [address] [facility], [place], [address], 07/22/2022 16:11:13 07/17/2007/22/2022 IGP,C TNGTV ,APT HPV,R FX16/ 18,45 diagnosis: Kim YIP FOR INTRA EPITH ELIAL RADHA N OR GONZALEZ HUERTA . Not Available [facility] ([facility]) [address] [facility], [place], [address], 07/22/2022 16:11:13 07/17/2007/22/2022 IGP,C TNGTV ,APT HPV,R FX16/ 18,45 specimen adequacy: Kim dupont Satis facto ry for evalu ation . No endoc ervic al compo nent is ident ified . Not Available [facility] ([facility]) [address] [facility], [place], [address], 07/22/2022 16:11:13 07/17/2007/22/2022 IGP,C TNGTV ,APT HPV,R FX16/ 18,45 clinician provided ICD10: Kim dupont Z01.4 19 Not Available [facility] ([facility]) [address] [place], [address], 07/22/2022 16:11:13 07/17/2007/22/2022 IGP,C TNGTV ,APT HPV,R FX16/ 18,45 performed by: Kim Radford, Cytot caio bradley t (ASCP ) Not Available [facility] ([facility]) [address] [place], [address], 07/22/2022 16:11:13 07/17/20 22 07/22/2022 IGP,C TNGTV ,APT HPV,R FX16/ 18,45 . . Not Available [facility] ([facility]) [address] [facility], [place], [address], 07/22/2022 16:11:13 07/17/2007/22/2022 IGP,C TNGTV ,APT HPV,R FX16/ 18,45 note: Kim dupont The Pap smear is a scree thais test desig jhoana to aid in the detec tion of melissa ligna nt and malig nant condi tions of the uteri ne cervi x. It is not a diagn ostic proce dure and shoul d not be used as the sole means of detec ting cervi juancarlos cance r. Both false -posi tive and false -nega tive repor ts do occur . Not Available [facility] ([facility]) [address] [facility], [place], [address], 07/22/2022 16:11:13 07/17/2007/22/2022 IGP,C TNGTV ,APT HPV,R FX16/ 18,45 test methodology: Kim dupont This liqui d based ThinP rep(R ) pap test was scree jhoana with the use of an image guide d systrafia m. Not Available [facility] ([facility]) [address] [facility] [address], [place], [address], 07/22/2022 16:11:13 07/17/2007/18/2022 HIV AB/P2 4 AG WITH REFLE X HIV Ab/P24 Ag screen Non Reacti ve nonrea ctive HIV Negat michell HIV-1 /HIV- 2 antib odies and HIV-1 p24 antig en were NOT detec annamarie. There is no labor atory evide nce of HIV infec tion. Not Available [facility] ([facility]) [address] [facility] [address], [place], [address], 07/18/2022 07:13:04 07/17/20 22 07/18/2022 RPR, RFX QN RPR/C ONFIR M TP RPR Non Reacti ve nonrea ctive Not Available [facility] ([facility]) [address] [facility] [address], [place], [address], 07/18/2022 07:13:03 07/17/2007/18/2022 HBSAG SCREE N HBsAg screen Negati ve negati ve Not Available [facility] ([facility]) [address] [facility] [address], [place], [address], 07/18/2022 07:13:03 07/17/2007/18/2022 HSV 1 AND 2-SPE C AB, IGG W/RFX hsv 1 IgG, type spec 41.10 index 0.00-0 .90 above high normal Negat michell <0.91 Equiv ocal 0.91 - 1.09 Posit michell >1.09 Note: Negat michell indic ates no antib odies detec annamarie to HSV-1 . Equiv ocal may sugge st early infec tion. If clini vinicius appro priat e, retes t at later date. Posit michell indic ates antib odies detec annamarie to HSV-1 . Not Available [facility] ([facility]) [address] [facility] [address], [place], [address], 07/18/2022 07:13:02 07/17/2007/18/2022 HSV 1 AND 2-SPE C AB, IGG W/RFX hsv 2 IgG, type spec <0.91 index 0.00-0 .90 Negat michell <0.91 Equiv ocal 0.91 - 1.09 Posit michell >1.09 Note: Negat michell indic ates no HSV-2 antib odies detec annamarie. Posit michell indic ates HSV-2 antib odies detec annamarie. Equiv ocal and low posit michell HSV-2 scree ns (Inde x 0.91- 5.00) may be false posit michell and are refle xed to suppl xiao ashley in accor dance with [facility] guide lines . Not Available [facility] ([facility]) [address] [facility], [place], [address], 07/18/2022 07:13:02 07/17/2007/18/2022 HCV ANTIB RILEY hep C virus Ab <0.1 s/co_ ratio 0.0-0. 9 Negat michell: < 0.8 Indet ermin ate: 0.8 - 0.9 Posit michell: > 0.9 HCV antib riley alone does not diffe renti ate betwe en previ ous resol hermes infec tion and activ e infec tion. The [facility] and curre nt clini juancarlos guide lines recom mend that a posit michell HCV antib riley resul t be follo wed up with an HCV RNA test to suppo rt the diagn osis of acute HCV infec tion. [facility] offer s Hepat itis C Virus (HCV) RNA, Diagn osis, DENISE (8564 70) and Hepat itis C Virus (HCV) Antib riley with refle x to Quant itati ve Real- time PCR (1440 50). Not Available [facility] ([facility]) [address] [facility] [address], [place], [address], 07/18/2022 07:13:02 07/17/2007/18/2022 NUSWA B VAGIN ITIS PLUS (VG+) atopobium vaginae High - 2 score abnormal Not Available [facility] ([facility]) [address] [place], [address], 07/19/2022 11:11:59 07/17/2007/18/2022 NUSWA B VAGIN ITIS PLUS (VG+) bvab 2 High - 2 score abnormal Not Available [facility] ([facility]) [address] [place], [address], 07/19/2022 11:11:59 07/17/2007/18/2022 NUSWA B VAGIN ITIS PLUS (VG+) megasphaera 1 High - 2 score abnormal Calcu late total score by mesha ascencio the 3 indiv idual bacte rial vagin osis (BV) marke r score s toget her. Total score is inter prete d as follo ws: Total score 0-1: Indic ates the absen ce of BV. Total score 2: Indet ermin ate for BV. Addit ional clini juancarlos data shoul d be evalu ated to estab jamee a diagn osis. Total score 3-6: Indic ates the prese nce of BV. This test was devel oped and its perfo rmanc e vivek cteri stics deter mined by [facility]. It has not been clear ed or appro hermes by the Food and Drug Admin istra tion. Not Available [facility] ([facility]) [address] [place], [address], 07/19/2022 11:11:59 07/17/2007/18/2022 NUSWA B VAGIN ITIS PLUS (VG+) jazmyne albicans, DENISE Negati ve negati ve Not Available [facility] ([facility]) [address] [place], [address], 07/19/2022 11:11:59 07/17/2007/18/2022 NUSWA B VAGIN ITIS PLUS (VG+) jazmyne glabrata, DENISE Negati ve negati ve Not Available [facility] ([facility]) [address] [place], [address], 07/19/2022 11:11:59 07/17/2007/19/2022 NUSWA B VAGIN ITIS PLUS (VG+) trich vag by DENISE Negati ve negati ve Not Available [facility] ([facility]) [address] [place], [address], 07/19/2022 11:11:59 07/17/20 22 07/19/2022 NUSWA B VAGIN ITIS PLUS (VG+) chlamydia trachomatis, DENISE Negati ve negati ve Not Available [facility] ([facility]) [address] [place], [address], 07/19/2022 11:11:59 07/17/20 22 07/19/2022 NUSWA B VAGIN ITIS PLUS (VG+) neisseria gonorrhoeae, DENISE Negati ve negati ve Not Available [facility] ([facility]) [address] [facility], [place], [address], 07/19/2022 11:11:59 04/16/20 23 04/17/2023 HCV ANTIB RILEY hep C virus Ab Non Reacti ve nonrea ctive HCV antib riley alone does not diffe renti ate betwe en previ ously resol hermes infec tion and activ e infec tion. Equiv ocal and React michell HCV antib riley resul ts shoul d be follo wed up with an HCV RNA test to suppo rt the diagn osis of activ e HCV infec tion. Not Available [facility] ([facility]) [address] [facility] [address], [place], [address], 04/20/2023 16:11:06 04/16/20 23 04/17/2023 HSV 1 AND 2-SPE C AB, IGG W/RFX hsv 1 IgG, type spec 49.10 index 0.00-0 .90 above high normal Negat michell <0.91 Equiv ocal 0.91 - 1.09 Posit michell >1.09 Note: Negat michell indic ates no antib odies detec annamarie to HSV-1 . Equiv ocal may sugge st early infec tion. If clini vinicius appro priat e, retes t at later date. Posit michell indic ates antib odies detec annamarie to HSV-1 . Not Available [facility] ([facility]) [address] [facility] [address], [place], [address], 04/20/2023 16:11:07 04/16/20 23 04/17/2023 HSV 1 AND 2-SPE C AB, IGG W/RFX hsv 2 IgG, type spec <0.91 index 0.00-0 .90 Negat michell <0.91 Equiv ocal 0.91 - 1.09 Posit michell >1.09 Note: Negat michell indic ates no HSV-2 antib odies detec annamarie. Posit michell indic ates HSV-2 antib odies detec annamarie. Equiv ocal and low posit michell HSV-2 scree ns (Inde x 0.91- 5.00) may be false posit michell and are refle xed to suppl xiao ashley in accor dance with [facility] guide lines . Not Available [facility] ([facility]) [address] [facility] [address], [place], [address], 04/20/2023 16:11:07 04/16/20 23 04/19/2023 NUSWA B VAGIN ITIS PLUS (VG+) trich vag by DENISE Negati ve negati ve Not Available [facility] ([facility]) [address] [place], [address], 04/20/2023 16:11:08 04/16/20 23 04/19/2023 NUSWA B VAGIN ITIS PLUS (VG+) chlamydia trachomatis, DENISE Negati ve negati ve Not Available [facility] ([facility]) [address] [place], [address], 04/20/2023 16:11:08 04/16/20 23 04/19/2023 NUSWA B VAGIN ITIS PLUS (VG+) neisseria gonorrhoeae, DENISE Negati ve negati ve Not Available [facility] ([facility]) [address] [place], [address], 04/20/2023 16:11:08 04/16/20 23 04/20/2023 NUSWA B VAGIN ITIS PLUS (VG+) atopobium vaginae High - 2 score abnormal Not Available [facility] ([facility]) [address] [facility] [address], [place], [address], 04/20/2023 16:11:08 04/16/20 23 04/20/2023 NUSWA B VAGIN ITIS PLUS (VG+) bvab 2 High - 2 score abnormal Not Available [facility] ([facility]) [address] [facility] [address], [place], [address], 04/20/2023 16:11:08 04/16/20 23 04/20/2023 NUA B VAGIN ITIS PLUS (VG+) megasphaera 1 High - 2 score abnormal Calcu late total score by mesha ascencio the 3 indiv idual bacte rial vagin osis (BV) marke r score s toget her. Total score is inter prete d as follo ws: Total score 0-1: Indic ates the absen ce of BV. Total score 2: Indet ermin ate for BV. Addit ional clini juancarlos data shoul d be evalu ated to estab jamee a diagn osis. Total score 3-6: Indic ates the prese nce of BV. This test was devyandel woodson and its perfo rmanc e vivek cteri stics deter mined by [facility]. It has not been clear ed or appro hermes by the Food and Drug Admin istra tion. Not Available [facility] ([facility]) [address] [facility] [address], [place], [address], 04/20/2023 16:11:08 04/16/20 23 04/20/2023 NUA B VAGIN ITIS PLUS (VG+) jazmyne albicans, DENISE Negati ve negati ve Not Available [facility] ([facility]) [address] [facility] [address], [place], [address], 04/20/2023 16:11:08 04/16/20 23 04/20/2023 NUSWA B VAGIN ITIS PLUS (VG+) jazmyne glabrata, DENISE Negati ve negati ve Not Available [facility] ([facility]) [address] [facility] [address], [place], [address], 04/20/2023 16:11:08 04/16/20 23 04/17/2023 HBSAG SCREE N HBsAg screen Negati ve negati ve Not Available [facility] ([facility]) [address] [facility], [place], [address], 04/20/2023 16:11:08 04/16/20 23 04/17/2023 RPR, RFX QN RPR/C ONFIR M TP RPR Non Reacti ve nonrea ctive Not Available [facility] ([facility]) [address] [facility], [place], [address], 04/20/2023 16:11:09 04/16/2004/17/2023 HIV AB/P2 4 AG WITH REFLE X HIV Ab/P24 Ag screen Non Reacti ve nonrea ctive HIV Negat michell HIV-1 /HIV- 2 antib odies and HIV-1 p24 antig en were NOT detec annamarie. There is no labor atory evide nce of HIV infec tion. Not Available [facility] ([facility]) [address] [facility] [address], [place], [address], 04/20/2023 16:11:10 Result Notes None recorded. Problems Name Problem SNOMED Code Status Onset Date Resolution Date Notes Provider Name and Address Organization Details Recorded Time Celiac disease 955335367 Active 2019 Verna lam, [facility] 0 09:11:08 Irregular periods 24444562 Active MAME Yang Attn: Dwaine ascencio,[address] [facility], [place], [address], [facility] 6 09:32:14 History of anemia 302564450 Active MAME Yang Attn: Dwaine g,[address] [facility], [place], [address], [facility] 6 09:32:14 Candidiasis of vagina 02988455 Active Nori Turciosam, ETL ANALYST- Attn: Dwaine ascencio,[address] [facility], [place], [address], [facility] 6 09:32:14 Problem Notes None recorded. Procedures Surgical History Date Name Laterality Status Provider Name and Address Organization Details Recorded Time 07/17/2022 Date of Last Pap Smear completed Ale Diaz RN [facility] 07/22/2022 16:12:36 Imaging Results None recorded. Procedure Notes None recorded. Medical Equipment None Reported. Allergies No known drug allergies Medications Name Sig Start Date Stop Date Status Note LastModified by Organization Details LastModified Time amoxicillin 500 mg capsule 07/17 completed Not Available Not Available Not Available Vitamin B-2 100 mg tablet TAKE 1 TABLET BY MOUTH ONCE DAILY 07/17 completed Not Available Not Available Not Available promethazin e-DM 6.25 mg-15 mg/5 mL oral syrup 07/06 completed Not Available Not Available Not Available nystatin 100,000 unit/mL oral suspension 07/06 completed Not Available Not Available Not Available fluconazole 150 mg tablet TAKE 1 TABLET BY MOUTH WITH A MEAL 04/16 completed Not Available Not Available Not Available valacyclovi r 1 gram tablet TAKE 1 TABLET BY MOUTH EVERY 12 HOURS active Not Available Not Available No t Available hydrocodone 5 mg-acetamin ophen 325 mg tablet 07/18 completed Not Available Not Available Not Available metronidazo le 500 mg tablet Take 1 tablet twice a day by oral route as directed for 7 days. 04/22 completed Not Available Not Available Not Available hydroxyzine HCl 50 mg tablet TAKE 1 TABLET BY MOUTH EVERY 6 HOURS NEEDED FOR ANXIETY. AVOID DRIVING OR OPERATING MACHINES. active Not Available Not Available No t Available alprazolam 0.25 mg tablet TAKE 1 TABLET BY MOUTH EVERY 6 HOURS NEEDED FOR ANXIETY. AVOID DRIVING OR OPERATING MACHINERY AFTER TAKING active Not Available Not Available No t Available cephalexin 500 mg capsule TAKE 1 CAPSULE BY MOUTH EVERY 12 HOURS FOR 7 DAYS 04/16 completed Not Available Not Available Not Available ferrous sulfate 325 mg (65 mg iron) tablet take one tablet twice a day by oral route with meals. 07/18 completed Not Available Not Available Not Available dexamethaso ne 4 mg tablet 07/17 completed Not Available Not Available Not Available methylpredn isolone 4 mg tablets in a dose pack 07/06 completed Not Available Not Available Not Available ferrous sulfate 325 mg (65 mg iron) tablet,ronna yed release Take 1 tablet twice a day by oral route with meals. 05/30 completed Not Available Not Available Not Available Terazol 7 0.4 % vaginal cream Insert 1 applicato rful every day by vaginal route at bedtime for 7 days. 07/18 completed Not Available Not Available Not Available ondansetron 4 mg disintegrat ing tablet DISSOLVE 1 TABLET IN MOUTH EVERY 6 HOURS NEEDED FOR NAUSEA AND VOMITING active Not Available Not Available No t Available Sprintec (28) 0.25 mg-0.035 mg tablet TAKE 1 TABLET BY MOUTH ONCE DAILY DIRECTED 2023 active Not Available Not Available Not Avai lable nitrofurant oin monohydrate /macrocryst als 100 mg capsule TAKE 1 CAPSULE BY MOUTH EVERY 12 HOURS WITH FOOD FOR 5 DAYS 04/16 completed Not Available Not Available Not Available One-A-Day Womens Formula take 1 tablet daily 07/18 completed Not Available Not Available Not Available ferrous gluconate 324 mg (38 mg iron) tablet TAKE 1 TABLET BY MOUTH ONCE DAILY 07/17 completed Not Available Not Available Not Available Linzess 145 mcg capsule 07/06 completed Not Available Not Available Not Available Monistat 7 2 %(100 mg)-2 %(9 gram)vagina l,prefil applicator and cream Insert 9 g every day by vaginal route at bedtime. 05/31 completed Not Available Not Available Not Available Talia Fe 10/25 (28) 1 mg-20 mcg (21)/75 mg (7) tablet TAKE 1 TABLET BY MOUTH ONCE DAILY active Not Available Not Available No t Available Linzess 72 mcg capsule TAKE 1 CAPSULE BY MOUTH ONCE DAILY 07/17 completed Not Available Not Available Not Available Fluzone Quad (PF) 60 mcg (15 mcg x 4)/0.5 mL IM suspension [facility] 07/17 completed Not Available Not Available Not Available Paxlovid 300 mg (150 mg x 2)-100 mg tablets in a dose pack 07/17 completed Not Available Not Available Not Available Vitals Date Recorded Body height Body mass index (BMI) Body weight Provider Name and Address Organization Details Last Updated DateTime 12/14/2020 177.8 cm 21.5 kg/m2 79221.86 g Natalya Zarate MA [facility] 12/14/2020 14:11:10 Date Recorded Body height Body mass index (BMI) Body weight Respiratory rate Heart rate Systolic blood pressure Diastolic blood pressure Provider Name and Address Organization Details Last Updated DateTime 2 177.8 cm 20.8 kg/m2 71385.6 4 g 14 /min 89 /min 110 mm[Hg] 64 mm[Hg] Verna Mchugh [facility] 2 09:51:16 Date Recorded Body height Body mass index (BMI) Body weight Heart rate Respiratory rate Systolic blood pressure Diastolic blood pressure Provider Name and Address Organization Details Last Updated DateTime 3 177.8 cm 20.4 kg/m2 35844.5 2 g 76 /min 16 /min 127 mm[Hg] 83 mm[Hg] Verna Mchugh [facility] 3 10:04:15 Date Recorded Body height Body mass index (BMI) Body weight Heart rate Respiratory rate Systolic blood pressure Diastolic blood pressure Provider Name and Address Organization Details Last Updated DateTime 4 177.8 cm 21 kg/m2 44408.2 9 g 80 /min 18 /min 130 mm[Hg] 81 mm[Hg] Verna Mchugh [facility] 4 14:25:10 Social History Question Answer Notes LastModified by Organizat ion Details LastModified Time Tobacco Smoking Status Never Smoker Neda Crystal MA [facility], [facility] 02/17/2015 15:34:25 What Is Your Level Of Alcohol Consumption? Occasional [id number] Information not available 07/17/2022 What Is Your Level Of Caffeine Consumption? Moderate [id number] Information not available 02/17/2015 In The 14 Days Before Symptom Onset, Have You Had Close Contact With A Laboratory-confir med COVID-19 While That Case Was Ill? No [email or web address] Information not available 07/17/2022 In The 14 Days Before Symptom Onset, Have You Had Close Contact With A Person Who Is Under Investigation For COVID-19 While That Person Was Ill? No [email or web address] Information not available 07/17/2022 Have You Been To An Area Known To Be High Risk For COVID-19? No Information not available 07/17/2022 What Type Of Diet Are You Following? REGULAR Information not available 03/10/2020 Do You Or Have You Ever Used E-cigarettes Or Vape? Never Used Electronic Cigarettes Information not available 03/10/2020 Live Alone Or With Others? With Others [email or web address] Information not available 02/17/2015 What Was The Date Of Your Most Recent Tobacco Screening? 04/22/2024 [email or web address] Information not available 04/22/2024 How Many Children Do You Have? 0 [email or web address] Information not available 02/17/2015 Do You Use Protection During Sex? Usually Information not available 03/10/2020 Seat Belts Used Routinely Yes Information not available 02/17/2015 Are You Sexually Active? Yes Information not available 03/10/2020 Smoke Alarm In Home Yes [email or web address] Information not available 02/17/2015 Do You Have Smoke And Carbon Monoxide Detectors In Your Home? Yes [email or web address] Information not available 07/17/2022 Are You Passively Exposed To Smoke? No [email or web address] Information no t available 07/17/2022 Do You Or Have You Ever Used Smokeless Tobacco? Never Used Smokeless Tobacco Information not available 03/10/2020 How Much Tobacco Do You Smoke? No Information not available 03/10/2020 Do You Use Any Illicit Or Recreational Drugs? No [email or web address] Information not available 07/17/2022 On What Date Was Tobacco Cessation Counseling Provided? 03/10/2020 Information not available 03/10/2020 Do You Or Have You Ever Used Any Other Forms Of Tobacco Or Nicotine? No [email or web address] Information not available 07/17/2022 Sex: Female Functional Status Question Answer Note LastModified by Organization D etails LastModified Time Are you able to care for yourself? Yes [email or web address] Information n ot available 02/17/2015 What is your exercise level? None Information not available 03/10/2020 Mental Status None recorded. Family History Relationship Description Onset Age of this Age Resolved Age Notes LastModified by Organization Details LastModified Time Mother Depressive disorder [email or web address] Not available 09:32:18 Mother Migraine [email or web address] Not availab le 07/18/2017 11:26:14 Mother Depressed bipolar I disorder [email or web address] Not available 07/18 11:26:31 Father Hypertensive disorder [email or web address] Not available 09:32:18 Father Hypercholest erolemia [email or web address] Not available 09:32:18 Father Diabetes mellitus [email or web address] Not available 07/18 11:25:27 Brother Attention deficit hyperactivit y disorder [email or web address] Not available 07/06 11:25:09 Brother Hypertensive disorder [email or web address] Not available 07/18 11:25:38 Brother Hypercholest erolemia erobbinsma Not available 07/18 11:25:46 Medical History Condition Response Other N High Blood Pressure N Breast Cancer N Depression N Blood Clots N Lung Disease N Breast Problem N Anesthesia Complications N Headaches/Migraines N Anxiety Disorder N Muscle, Joint, or Bone Problems N Polyps N Infertility N Acid Reflux (GERD) N Cancer N Endometriosis N High Cholesterol N Liver Disease N Thyroid Problems N Kidney or Bladder Problems N GI Problems Y Acne N Eating Disorder N Anemia N Diabetes N Ovarian Cancer N Blood Transfusions N Seizures/Epilepsy N Abuse/Domestic Violence N Asthma N Hepatitis N Heart Disease N Pre-Eclampsia N Osteoporosis N Gynecological History Statement/Question Response Flow Moderate Date of LMP 04/06/2024 On BCP's at Conception? Y STIs/STDs N HPV Vaccine Y Duration of Flow (days) 5 Age at Menarche 16 Current Control Method BCPs Sexually Active? Y Menses Monthly Y Date of Last Pap Smear 07/17/2022 Sexual Problems? N LMP Definite Desired Control Method BCPs Obstetrics History GPAL:G 0 P 0 0 0 0 Immunizations Vaccine Type Date Status Note Provider Dale morataya and Address Organization Details Recorded Time Tdap 2 completed Neda Crystal MA null, [place] - [facility] 02/17/2015 15:34:56 Influenza, split virus, quadrivalent, preservative 7 completed Not Available [facility] 10/23/2019 02:40:51 meningococcal MCV4P 09/11/201 8 completed Not Available [facility] 10/23/2019 02:42:37 Past Encounters Encounter ID Performer Location Encounter Start Date Encounter Closed Date Diagnosis/Indication Diagnosis SNOMED-CT Code Diagnosis ICD10 Code Diagnosis Note [id number] Massiel Paez ([facility]) [address] [place] [address] 02/17/2015 14:57:23 02/17/2015 15:50:43 History of anemia [id number] Massiel Paez ([facility]) [address] [place] [address] 05/30/2015 09:20:36 05/30/2015 09:49:56 History of anemia 522703908 Candidiasis of vagina 69972969 [id number] MAME Yang ([facility]) [address] [facility] [address] [place] [address] 02/16/2016 09:19:53 02/16/2016 09:51:28 Contraception care management 147484597 Z30.9 Venereal d isease screening 272626603 Z11.3 [id number] MAME Yang ([facility]) [address] [facility] [address] [facility] [place] [address] 03/14/2017 09:04:05 03/17/2017 09:03:11 Contraception care management 409683156 Z30.9 [id number] MD Rebecca Justin ([facility]) [address] [place] [address] 07/18/2017 10:47:32 07/21/2017 13:11:49 Near syncope 863794579 R55 Probably due to vasovagal symptoms.C heck baseline labs. Since had h/o anemia check cause as wellIf having further issue come in, May d/s with your Expediter Clerk about heavy cycles as well. Needs infl uenza immunization 654484223 Z23 no issue before [id number] MAME Yang 14 OB [address] [facility] [address] [place] [address] 03/06/2018 15:35:55 03/06/2018 16:54:26 Contraception care management 949041845 Z30.9 Venereal d isease screening 001369766 Z11.3 [id number] Nori Muñoz [facility] 14 OB [address] [facility] [place] [address] 04/27/2018 12:43:49 04/30/2018 15:19:57 Venereal disease screening 497003203 Z11.3 Vaginal discharge 090963 006 N89.8 Vaginal lesion 261174450 N94.89 [id number] MD Rebecca Justin 14 IM [address] [facility] [place] [address] 06/02/2018 14:32:31 06/03/2018 15:39:38 History and physical examination, sports participation 407802327 Z02.5 Cleared with out restrictio n and papers signed off. [id number] MD Rebecca Justin 14 IM [address] [facility] [place] [address] 06/16/2018 15:57:08 06/18/2018 11:56:21 Requires a meningitis vaccination 603332251 Z28.3 no issue with allergy [id number] Nori Muñoz [facility] 14 OB [address] [facility] [place] [address] 03/05/2019 14:22:14 03/05/2019 15:26:31 Gynecologic examination 64265217 Z01.419 1. Counseled regarding prevention of STD's , condom use and prevention . 2. Counseled regarding contracept michell options, risk factors and side effects. 3. Advised avoidance of tobacco, alcohol, and drugs . 4. Counseled regarding folic acid supplement ation, calcium needs and prevention of osteoporos is . 5. BSE reviewed and recommende d. 6. Follow up in one year or sooner if needed. Venereal d isease screening 606944115 Z11.3 1. STD testing done per pt request 2. Educated pt on STD prevention , Condom use 3. Pt verbalized understand ing 4. Will follow up pending lab results, as needed or at next annual Contracept ion care management 107814683 Z30.9 1. Reviewed all forms of control with patient including risk factors and side effects. 2. Counseled on STD transmissi on and prevention , condom use and prevention . 3. Pt would like to continue with OCP. Educated on correct use and side effects. Will send rx to pharmacy. [id number] MAME Yang [address] [place] [address] 03/10/2020 13:51:06 03/13/2020 10:14:50 Health condition feared but not present 4846609502 79918 Z71.1 Pt educated on prevention of yeast infection. Will call office if symptoms persist or return. [id number] MAME Yang [address] [place] [address] 07/06/2020 09:06:36 07/07/2020 10:36:55 Contraception care management 365581106 Z30.9 1. Reviewed all forms of control with patient including risk factors and side effects. 2. Counseled on STD transmissi on and prevention , condom use and prevention . 3. Pt would like to continue with OCP. Educated on correct use and side effects. Will send rx to pharmacy. [id number] MAME Yang [address] [place] [address] 12/14/2020 14:09:54 12/15/2020 11:02:37 Contraception care management 814346883 Z30.9 1. Reviewed all forms of control with patient including risk factors and side effects. 2. Counseled on STD transmissi on and prevention , condom use and prevention . 3. Pt would like to continue with OCP. Educated on correct use and side effects. Will send rx to pharmacy. [id number] MAME Yang [address] [place] [address] 04/27/2021 15:21:43 05/02/2021 09:32:25 Contraception care management 602412397 Z30.9 1. Reviewed all forms of control with patient including risk factors and side effects. 2. Counseled on STD transmissi on and prevention , condom use and prevention . 3. Pt would like to continue with OCP. Educated on correct use and side effects. Will send rx to pharmacy. [id number] MAME Yang [address] [place] [address] 07/17/2022 09:31:27 07/18/2022 06:55:58 Contraception care management 133467583 Z30.9 1. Reviewed all forms of control with patient including risk factors and side effects. 2. Counseled on STD transmissi on and prevention , condom use and prevention . 3. Pt would like to continue with OCP. Educated on correct use and side effects. Will send rx to pharmacy. Gynecologi c examination 24200952 Z01.419 1. Counseled regarding prevention of STD's , condom use and prevention . 2. Counseled regarding contracept michell options, risk factors and side effects. 3. Advised avoidance of tobacco, alcohol, and drugs . 4. Counseled regarding folic acid supplement ation, calcium needs and prevention of osteoporos is . 5. BSE reviewed and recommende d. 6. Follow up in one year or sooner if needed. Vaginal discharge 907432 006 N89.8 Nuswab done and sent to lab. Counseled on STD prevention and condom use. Counseled on yeast and BV prevention . Will follow up pending lab results. High risk sexual behavior 385661460 Z72.51 [id number] [facility] OB 4 [facility] [address] [address] 04/16/2023 09:45:18 04/17/2023 08:41:36 Gynecologic examination 59352413 Z01.419 1. Counseled regarding prevention of STD's , condom use and prevention . 2. Counseled regarding contracept michell options, risk factors and side effects. 3. Advised avoidance of tobacco, alcohol, and drugs . 4. Counseled regarding folic acid supplement ation, calcium needs and prevention of osteoporos is . 5. BSE reviewed and recommende d. 6. Follow up in one year or sooner if needed. High risk sexual behavior 612632640 Z72.51 1. STD testing done per pt request 2. Educated pt on STD prevention , Condom use 3. Pt verbalized understand ing 4. Will follow up pending lab results, as needed or at next annual Positive s creening for depression on PHQ-9 (Patient Health Questionnaire 9) 0769108876 92338 Z13.31 Denies thoughts of self harm or harming others. Pt instructed to call 911 if depression worsens or go to ED. Vaginal odor 557531221 N 89.8 Nuswab done and sent to lab. Counseled on STD prevention and condom use. Counseled on yeast and BV prevention . Will follow up pending lab results. Contracept ion care management 767000185 Z30.9 1. Reviewed all forms of control with patient including risk factors and side effects. 2. Counseled on STD transmissi on and prevention , condom use and prevention . 3. Pt would like to continue with OCP. Educated on correct use and side effects. Will send rx to pharmacy. Herpes simplex 44298843 B00.9 1. Reviewed transmissi on and prevention of STD's including condom use 2. Reviewed medication use and instructio n on taking all meds to prevention occurences .3. Pt informed to have partner(s) informed and treated and avoid intercours e during breakouts. [id number] Nori Muñoz, [facility] Rebecca 14 OB [address] [facility] [address] [place] [address] 04/22/2024 14:09:01 04/23/2024 09:08:06 Gynecologic examination 11896640 Z01.419 1. Counseled regarding prevention of STD's , condom use and prevention . 2. Counseled regarding contracept michell options, risk factors and side effects. 3. Advised avoidance of tobacco, alcohol, and drugs . 4. Counseled regarding folic acid supplement ation, calcium needs and prevention of osteoporos is . 5. BSE reviewed and recommende d. 6. Follow up in one year or sooner if needed. Contracept ion care management 243131888 Z30.9 1. Reviewed all forms of control with patient including risk factors and side effects. 2. Counseled on STD transmissi on and prevention , condom use and prevention . 3. Pt would like to continue with OCP. Educated on correct use and side effects. Will send rx to pharmacy. Herpes simplex 93680153 B00.9 1. Reviewed transmissi on and prevention of STD's including condom use 2. Reviewed medication use and instructio n on taking all meds to prevention occurences .3. Pt informed to have partner(s) informed and treated and avoid intercours e during breakouts. Positive s creening for depression on PHQ-9 (Patient Health Questionnaire 9) 0506061079 82987 Z13.31 Denies thoughts of self harm or harming others. Pt instructed to call 911 if depression worsens or go to ED. Health Concerns Section Related Observation LastModified by Organization Detai ls LastModified Time None Recorded Concern Status LastModified by Organization Details LastModified Time None Recorded Advance Directives Directive None Recorded Payers Encounter Date Sequence Insurance Name Policy Number Policy Robertson Covered Member ID Robertson Member ID Guarantor Name 12/14/2020 1 [facility] [employer] 32 Jose Aguilerain [id number] Danay Chenarringin 12/14/2020 2 [place] [id number] 1 [place] [id number] KOREY Martinezmichele Aguilerain 04/27/2021 1 [facility] [employer] 32 Jose Aguilerain [id number] Danay Aguilerain 04/27/2021 2 [place] [id number] 1 [place] [id number] KOREY Martinezmichele Chenarringin 07/17/2022 1 [facility] [employer] 32 Jose Aguilerain [id number] Danay Aguilerain 04/16/2023 1 [facility] [employer] 32 Jose Aguilerain [id number] Danay Aguilerain 04/22/2024 1 [facility] (MEDICAID REPLACEMENT - HMO) [id number] Danay Aguilerain [id number] Danay Aguilerain Notes Date Note Type Note Provider Name and Address Organization Details Recorded Time 12/14/2020 text/html Annual GYNReport ed bypatient.History:n o gynecologic complaints Menstrual cycle:Normal menses Urinary symptoms:No hematuria; No incontinence Vulva:No genital lesion Vagina:Normal vaginal discharge Breast:No breast pain; No breast lump; No nipple discharge Current Contraception:Wants to discuss contraceptive options Sexual complaints:No sexual complaints; No pain during intercourse; Normal libido Menopausal Symptoms:No menopausal symptoms; Normal vaginal lubrication Psychological symptoms:No depression; No anxiety; No PMDD Preventive measures:Encourage self breast examination; Encourage regular exercise; Encourage no tobacco use; Encourage regular mammograms starting age 40 pt currently on ocp, heard on a podcast that ocp was bad for you. would like to stay on ocp but unsure. MAME Yang Attn: [address] [place], [address], [facility] 12/14/2020 14:18:43 04/27/2021 text/html Annual GYNReport ed bypatient.History:n o gynecologic complaints Menstrual cycle:Normal menses Urinary symptoms:No hematuria; No incontinence Vulva:No genital lesion Vagina:Normal vaginal discharge Breast:No breast pain; No breast lump; No nipple discharge Current Contraception:Wants to discuss contraceptive options Sexual complaints:No sexual complaints; No pain during intercourse; Normal libido Menopausal Symptoms:No menopausal symptoms; Normal vaginal lubrication Psychological symptoms:No depression; No anxiety; No PMDD Preventive measures:Encourage self breast examination; Encourage regular exercise; Encourage no tobacco use; Encourage regular mammograms starting age 40 pt currently on ocp, , needs refill. MAME Yang Attn: [address] [place], [address], [facility] 04/27/2021 15:23:28 07/17/2022 text/html Annual GYNReport ed bypatient.History:n o gynecologic complaints Menstrual cycle:Normal menses Urinary symptoms:No hematuria; No incontinence Vulva:No genital lesion Vagina:Normal vaginal discharge Breast:No breast pain; No breast lump; No nipple discharge Current Contraception:Satis fied with current contraception Sexual complaints:No sexual complaints; No pain during intercourse; Normal libido Menopausal Symptoms:No menopausal symptoms; Normal vaginal lubrication Psychological symptoms:No depression; No anxiety; No PMDD Preventive measures:Encourage self breast examination; Encourage regular exercise; Encourage no tobacco use; Encourage regular mammograms starting age 40; Followed with Q3 year pap smear and high risk HPV typing 27 yo fe here for annual wwe and control rf- on ocp and would like to continue- - last pap wnl 03/05/19- hx celiac disease- recent issue of vaginal odor with discharge MAME Yang Attn: [address] [place], [address], [facility] 07/17/2022 10:11:50 04/16/2023 text/html Annual GYNReport ed bypatient.History:n o gynecologic complaints Menstrual cycle:Normal menses Urinary symptoms:No hematuria; No incontinence Vulva:No genital lesion Vagina:Normal vaginal discharge Breast:No breast pain; No breast lump; No nipple discharge Current Contraception:Satis fied with current contraception Sexual complaints:No sexual complaints; No pain during intercourse; Normal libido Menopausal Symptoms:No menopausal symptoms; Normal vaginal lubrication Psychological symptoms:No depression; No anxiety; No PMDD Preventive measures:Encourage self breast examination; Encourage regular exercise; Encourage no tobacco use; Encourage regular mammograms starting age 40; Followed with Q3 year pap smear and high risk HPV typing 27 yo fe here for annual wwe and control rf- on ocp and would like to continue- - last pap wnl 07/17/22- hx celiac disease- recent issue of vaginal odor with discharge MAME Yang Attn: [address] [place], [address], [facility] 04/16/2023 10:37:31 04/22/2024 text/html Annual GYNReport ed bypatient.History:n o gynecologic complaints Menstrual cycle:Normal menses Urinary symptoms:No hematuria; No incontinence Vulva:No genital lesion Vagina:Normal vaginal discharge Breast:No breast pain; No breast lump; No nipple discharge Current Contraception:Satis fied with current contraception Sexual complaints:No sexual complaints; No pain during intercourse; Normal libido Menopausal Symptoms:No menopausal symptoms; Normal vaginal lubrication Psychological symptoms:No depression; No anxiety; No PMDD Preventive measures:Encourage self breast examination; Encourage regular exercise; Encourage no tobacco use; Encourage regular mammograms starting age 40; Followed with Q3 year pap smear and high risk HPV typing 27 yo fe here for annual wwe and control rf- on ocp and would like to continue- - last pap wnl 07/17/22- hx celiac disease MAME Yang Attn: [address] [place], [address], [facility] 04/22/2024 14:44:21 OBGyn Episode No OBEpisode recorded.
--- OUTSIDE RECORDS SUMMARY | 2025-01-05 14:59 | XMS_ITS | Clinical Summary ---
Author Organization [facility] Address [address] [place] [address] Care Team Providers Care Beef Farmer Name Role Phone Chaz Guillory MD Primary Care Provider [phone] Source Comments [facility],non-[facility] Affiliates and Associated Physician Practices is amultiple site organization consisting of ambulatory clinics and hospital sitesin [place], [place], [place] and [place]. This disclosure is being madepursuant to the Care Everywhere program and may not contain all information available regarding this patient. Last updated 18.[facility] 99dresses Allergies Active Allergy Reactions Criticality Noted Date Comments Gluten Meal Anaphylaxis High 01/08/2024 Medications * Be aware that medications may not be up to date on this document. Alwaysverify current medications with the patient. Medication Sig Dispensed Refills Start Date End Date Status Sprintec 28 0.25-35 MG-MCG tablet Take 1 (one) tablet by mouth once daily 01/05/2024 Active ALPRAZolam (Xanax) 0.25 MG tablet Take 1 (one) tablet by mouth every 6 hours as needed 10/31/2023 Active Active Problems No known active problems Family History Medical History Relation Name Comments Arthritis - Osteo Father Diabetes - Type 2 Father High Cholesterol Father Bipolar Disorder Mother Ankylosing Spondylitis Paternal Aunt Arthritis - Rheumatoid Paternal Aunt Relation Name Status Comments Father Mother Paternal Aunt Alive Social History Tobacco Use Types Packs/Day Years Used Date Smoking Tobacco: Never Smokeless Tobacco: Never Tobacco Cessation:Counseling Given: Not Answered Alcohol Use Standard Drinks/Week Comments Not Currently 2 (1 standard drink = 0.6 oz pur e alcohol) rarely Sex and Gender Information Value Date Recorded Sex Assigned at Not on file Gender Identity Not on file Sexual Orientation Not on file Last Filed Vital Signs Vital Sign Reading Time Taken Comments Blood Pressure 116/66 02/05/2024 2:15 PM CDT Pulse 97 02/05/2024 2:15 PM CDT Temperature - - Respiratory Rate 16 02/05/2024 2:15 PM CDT Oxygen Saturation 99% 02/05/2024 2:15 PM CDT Inhaled Oxygen Concentration - - Weight 65.3 kg (144 lb) 02/05/2024 2:15 PM CDT Height 177.8 cm (5' 10 ) 02/05/2024 2:15 PM CDT Body Mass Index 20.66 02/05/2024 2:15 PM CDT Plan of Treatment Health Maintenance Due Date Last Done Comments PAP SMEAR 1997 HIV SCREENING 2012 HEPATITIS C SCREENING 06/09/2015 DTAP/TDAP/TD VACCINES (1 - Tdap) 2016 HEPATITIS B VACCINE (1 of 3 - 19+ 3-dose series) 2016 COVID-19 VACCINE ( - 2023-2 5 season) 2024 INFLUENZA VACCINE (#1) 2024 DEPRESSION SCREENING 10/06/2024 ZOSTER VACCINE (1 of 2) 2047 HIB VACCINE Aged Out No longer eligi ble based on patient's age to complete this topic HPV VACCINE Aged Out No longer eligi ble based on patient's age to complete this topic MENINGOCOCCAL (Group B) VACC INE SHARED DECISION-MAKING Aged Out No longer eligibl e based on patient's age to complete this topic MENINGOCOCCAL GROUPS A/C/Y/W VACCINE Aged Out No longer eligible b ased on patient's age to complete this topic PNEUMOCOCCAL VACCINE Aged Out No long er eligible based on patient's age to complete this topic Care Teams Beef Farmer Relationship Specialty Start Date End Date Chaz Guillory MD [address] [place] [address] PCP - General Family Medicine 01/08/24
== END 2025-01-05 14:44 | disposition home or self-care (01) ==
PROVIDERS: Emergency Provider Nurse Practitioner Family; PCP Emergency Medicine
DX: N39.0 Urinary tract infection, site not specified (principal)
CPT/HCPCS: 81003; 87086; 99213; G0463